=== PATIENT | male | born 1945 | race Caucasian/White ===

== ENCOUNTER 2019-02-19 17:44 | Emergency (ER) | payer OTHER ==
[2019-02-19 19:23] LABS: ADD MAN DIFF? NO
[2019-02-19 19:28] LABS: WHITE BLOOD COUNT 9.6 10^3/ul (4.8-10.8)
[2019-02-19 19:28] LABS: BASOPHIL # 0.1 10^3/ul (0.0-0.1); BASOPHILS % 0.7 % (0.0-2.0); EOSINOPHILS # 0.4 10^3/ul (0.0-0.5); EOSINOPHILS % 3.7 % (0.0-7.0); HEMATOCRIT 35.8 % (42.0-52.0); HEMOGLOBIN 11.2 g/dl (14.0-18.0); LYMPHOCYTES # 1.7 10^3/ul (0.8-2.9); LYMPHOCYTES % 17.2 % (15.0-51.0); MEAN CORPUSCULAR HEMOGLOBIN 28.6 pg (29.0-33.0); MEAN CORPUSCULAR HGB CONC 31.3 g/dl (32.0-37.0); MEAN CORPUSCULAR VOLUME 91.6 fl (82.0-101.0); MEAN PLATELET VOLUME 9.9 fl (7.4-10.4); MONOCYTE # 0.8 10^3/ul (0.3-0.9); MONOCYTES % 8.3 % (0.0-11.0); NEUTROPHIL # 6.7 10^3/ul (1.6-7.5); NEUTROPHILS % 69.6 % (39.0-77.0); PLATELET COUNT 245 10^3/UL (140-415); RED BLOOD COUNT 3.91 10^6/ul (4.70-6.10); RED CELL DISTRIBUTION WIDTH 13.9 % (11.5-14.5)
[2019-02-19 19:45] LABS: ALANINE AMINOTRANSFERASE 21 IU/L (13-69); ALBUMIN 3.6 g/dl (3.3-4.9); ALBUMIN/GLOBULIN RATIO 1.12; ALKALINE PHOSPHATASE 82 IU/L (42-121); ANION GAP 6 (5-13); ASPARTATE AMINO TRANSFERASE 20 IU/L (15-46); BILIRUBIN,INDIRECT 0.2 mg/dl (0-1.1); BILIRUBIN,TOTAL 0.2 mg/dl (0.2-1.3); BLOOD UREA NITROGEN 33 mg/dl (7-20); CALCIUM 9.1 mg/dl (8.4-10.2); CARBON DIOXIDE 28 mmol/L (21-31); CHLORIDE 106 mmol/L (97-110); CREATININE 1.11 mg/dl (0.61-1.24); GLUCOSE 98 mg/dl (70-220); INR 1.03; LIPASE 50 U/L (23-300); POTASSIUM 4.2 mmol/L (3.5-5.1); PROTIME 13.6 Sec (11.9-14.9); PT RATIO 1.1; SODIUM 140 mmol/L (135-144); TOTAL PROTEIN 6.8 g/dl (6.1-8.1)
[2019-02-19] MEDS: SOD CHLORIDE 0.9% 1,000 ML IV (20:02)
[2019-02-19] MEDS: CEFTRIAXONE 1 GM/50 ML (PMX) 50 ML IVPB (20:03)
[2019-02-19] MEDS: KETOROLAC 15 MG INJ IV (20:03)
[2019-02-19] MEDS: PIPER-TAZO 3.375 GM IV (PMX) 100 ML IVPB (20:29)
[2019-02-19 22:18] LABS: C-REACTIVE PROTEIN 6.6 mg/dl (0.0-0.9)
[2019-02-19 22:41] LABS: ERYTHROCYTE SEDIMENTATION RATE 17 mm/Hr (0-20)
== END 2019-02-19 23:32 | disposition home or self-care (01) ==
LOC: E/R 17:44
DX: G89.18 Other acute postprocedural pain (principal); L03.116 Cellulitis of left lower limb; T81.89XA Other complications of procedures, not elsewhere classified, initial encounter; Y79.3 Surgical instruments, materials and orthopedic devices (including sutures) associated with adverse incidents; Z96.652 Presence of left artificial knee joint
CPT/HCPCS: 36415; 73562; 80053; 83690; 85025; 85610; 85651; 85730; 86140; 87070; 93971; 96374; 96375; 99285-25